=== PATIENT | female | born 1985 | race Caucasian/White ===

== ENCOUNTER → 2017-04-11 | Outpatient (CLI) | payer BC ==
--- NOTE | 2017-04-25 11:46 | EEG Procedure Note ---
EEG Procedure Note Date of Service Apr 11, 2017. Start / End Times Start Time: 04/11/2017 at 2:44pm End Time: 04/13/2017 at 12:31 PM Referring Physician Marlena Jefferson History This is a 31-year-old female with syncope and concern for seizure-like activity. Ambulatory EEG for spell capture and further evaluation of seizure etiology. Description This is a 21 electrode Ambulatory EEG with a single channel dedicated to limited EKG. The electrodes were placed in accordance with the International 10- 20 system. There was electrode artifact in Fp1 and Fp2 after 2:15 PM on April 12 and frequent diffuse electrode artifact after 7 AM on June 13 limiting the read of this EEG after those times. At the start of the recording the patient was in an awake state. Background was well organized and composed of symmetric mixed alpha and beta frequencies. There was a symmetric well-formed moderate amplitude 8-9 Hz posterior dominant rhythm that was reactive to eye opening and closure. Sleep was indicated by vertex waves, symmetric sleep spindles, and slow wave sleep. Patient journal was returned and reviewed. No clinical events reported. Interpretation This is a normal 48-hour ambulatory EEG. There was no electrographic seizures or epileptiform discharges. Clinical Correlation A normal EEG does not rule out epilepsy if there is a strong clinical suspicion or for spell types not captured. No clinical events were reported.
== END | disposition home or self-care (01) ==
LOC: C.NEUR 14:15
PROVIDERS: ATTEND Psychiatry & Neurology Neurology
DX: R56.9 Unspecified convulsions (principal); R55 Syncope and collapse